=== PATIENT | female | born 1975 | race Caucasian/White ===

== ENCOUNTER → 2017-09-08 09:52 | Outpatient (CLI) | payer MEDICAID, SELFPAY ==
--- NOTE | 2017-09-08 10:06 | EKG12_ITS ---
Test Reason : PREOP Blood Pressure : / mmHG Vent. Rate : 084 BPM Atrial Rate : 084 BPM P-R Int : 126 ms QRS Dur : 074 ms QT Int : 362 ms P-R-T Axes : 054 018 038 degrees QTc Int : 427 ms Normal sinus rhythm Normal ECG Confirmed by NOEMY WHEELER MD ([id number]), manager editorial HALEY MCFARLAND ([id number]) on 09/11/2017 3:48:09 PM Referred By: Mary Enriquez Confirmed By:NOEMY WHEELER MD
[2017-09-08 11:15] LABS: Anion Gap 10 (5-15); BUN 11 mg/dL (7-18); BUN/Creat Ratio 18.9 RATIO (10-20); Chloride 100 mmol/L (98-107); Creatinine, Serum 0.58 mg/dL (0.55-1.02); EST Glomerular Filtration Rate 121 mL/min (>60); Est Glom Filt Rate - Afr Amer 147 mL/min (>60); Glucose 80 mg/dL (70-110); Sodium Level 137 mmol/L (136-145)
== END ==
PROVIDERS: Family Provider Internal Medicine; PCP Internal Medicine; Visit Provider Physician Assistant
DX: Z01.810 Encounter for preprocedural cardiovascular examination (principal); I10 Essential (primary) hypertension
CPT/HCPCS: 36415; 80048; 93005

== ENCOUNTER → 2017-10-18 11:38 | Outpatient (CLI) | payer MEDICAID, SELFPAY ==
[2017-10-30 11:31] LABS: ACHR AB Modulating <12 % (0-20); ACHR Recep AB, Blocking 19 % (0-25); Acetylcholine Receptor Binding < 0.03 nmol/L (0.00-0.24)
== END ==
PROVIDERS: Family Provider Internal Medicine; PCP Internal Medicine; Visit Provider Psychiatry & Neurology Neurology
DX: G70.00 Myasthenia gravis without (acute) exacerbation (principal)
CPT/HCPCS: 36415; 83519; 84238

== ENCOUNTER → 2017-12-19 07:52 | Outpatient (CLI) | payer MEDICAID, SELFPAY ==
--- NOTE | 2017-12-19 10:53 | PFTCOMP_ITS ---
COMPLETE PULMONARY FUNCTION TEST INTERPRETATION Brief HPI: Patient is a 42 year old female, currently under the care of myself, who presents to [facility] for complete pulmonary function tests secondary to diagnosis of chest pain. Respiratory therapist reports good effort and reproducible results. Interpretation: Forced expiration spirometry shows no large airways obstructive ventilatory defect with an FEV1 of 101% predicted. There is no significant bronchodilator response by ATS criteria. Spirograms are of good quality and plateau normally. The respiratory flow volume loop shows a normal pattern. Lung volumes by body plethysmography show a normal total lung capacity at 5.5 L , 109% predicted. All other lung volumes are within normal limits. Diffusion capacity by carbon monoxide is normal at 85% predicted. The airway resistance is normal. Compared to previous pulmonary function tests from 12/07/2016, there has been no significant change. Impression: These pulmonary function tests are within normal limits and showed no significant change compared to previous.
== END ==
PROVIDERS: Family Provider Internal Medicine; PCP Internal Medicine; Visit Provider Internal Medicine Critical Care Medicine
DX: R07.9 Chest pain, unspecified (principal); K52.9 Noninfective gastroenteritis and colitis, unspecified
CPT/HCPCS: 94060; 94726; 94729

== ENCOUNTER → 2018-01-16 09:04 | Outpatient (CLI) | payer MEDICAID, SELFPAY ==
--- NOTE | 2018-01-16 09:11 | RAD_ITS ---
STUDY: X-RAY - LUMBAR SPINE REASON FOR EXAM: Female, 42 years old. Low back pain TECHNIQUE: view(s) of the lumbar spine were obtained. COMPARISON: None FINDINGS: Normal lumbar lordosis. There is no substantial scoliosis. There is a normal alignment of the vertebrae. Normal vertebral bodies and endplates. Normal disc space heights. There is no demonstrated fracture. There is atherosclerotic calcification of the abdominal aorta without a demonstrated aneurysm. Bowel gas pattern suggests ileus as multiple air-fluid levels are noted in nondistended loops of small bowel RAD/L/S Spine Min 4 Views IMPRESSION: Normal x-ray examination of the lumbar spine. Small bowel ileus Electronically Signed: Mike Pillai MD at 10:33 EDT , Service support ,
== END ==
PROVIDERS: Family Provider Internal Medicine; PCP Internal Medicine; Visit Provider Orthopaedic Surgery
DX: M54.5 Low back pain (principal)
CPT/HCPCS: 72110

== ENCOUNTER → 2018-03-01 07:06 | Outpatient (CLI) | payer MEDICAID, SELFPAY ==
--- NOTE | 2018-03-01 07:08 | MRI_ITS ---
STUDY: MRI CERVICAL SPINE WITHOUT CONTRAST REASON FOR EXAM: Female, 42 years old. neck pain,cervical radiculopathy. TECHNIQUE: Standardized fat and water weighted pulse sequences were obtained in the sagittal and axial planes. COMPARISON: None FINDINGS: Normal foramen magnum and brainstem-cervical cord junction. Normal craniovertebral junction. Normal anterior atlantoaxial articulation. Normal odontoid process. Normal cervical lordosis. Normal vertebral bodies and posterior osseous elements. C2-3: Normal endplates. Normal disc height, signal and morphology. Normal central canal and intervertebral neural foramina. C3-4: Normal endplates. Normal disc height, signal and morphology. Normal central canal and intervertebral neural foramina. C4-5: Normal endplates. Normal disc height, signal and morphology. Normal central canal and intervertebral neural foramina. C5-6: Normal endplates. Normal disc height, signal and morphology. Normal central canal and intervertebral neural foramina. C6-7: Normal endplates. Normal disc height, signal and morphology. Normal central canal and intervertebral neural foramina. C7-T1: Normal endplates. Normal disc height, signal and morphology. Normal central canal and intervertebral neural foramina. Normal cervical cord. Normal visualized soft tissue structures. MRI/Spine Cervical (Routine) IMPRESSION: Unremarkable unenhanced MR examination of the cervical spine. Electronically Signed: Louisa Hewitt MD at 15:20 EDT Tel , Service support ,
== END ==
PROVIDERS: Family Provider Internal Medicine; PCP Internal Medicine; Visit Provider Orthopaedic Surgery
DX: M54.12 Radiculopathy, cervical region (principal)
CPT/HCPCS: 72141

== ENCOUNTER 2018-03-08 10:00 | Outpatient (RCR) | payer MEDICAID, SELFPAY ==
--- NOTE | 2018-01-17 09:29 | HP.PTEVAL ---
Patient's Visit Information ANTHONY CARPIO is a 42 year old F referred to Physical Therapy by Leisa Schulz with a diagnosis of BACK PAIN.. Date of Evaluation: 01/17/18 Physical Therapist: Cherelle Segura - Visit Plan Frequency: 2-3x /Week Duration: 4-6 Weeks Plan: AQUATIC THERAPY FOR PAIN RELEIF, POSTURE CORRECTION/STRENGTHENING, INSTRUCTION IN APPROPRIATE BODY MECHANICS AND ACTIVITY MODIFICATIONS. DLS STARTING WITH A NEUTRAL SPINE PROGRESSING ROM TOLERATED. TRINIDAD LE ROM, STRETCHING AND STRENGTHENING. HEP INSTRUCTION. - Subjective Subjective: Work/Leisure: OFF WORK SINCE AUGUST 2017. 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 THE WORK WAS VERY PHYSICAL. REPORTS SHE STOPPED WORKING BECAUSE THE DOCTOR WANTS HER TO BE ON DISABILITY. Disability: APPLYING. Present symptoms: LOW BACK PAIN. LEFT THIGH, LEG AND FOOT PAIN, NUMBNESS AND TINGLING. PATIENT ALSO REPORTS RIGHT LE (THIGH, LEG AND FOOT PAIN, NUMBNESS AND TINGLING) BUT MUCH MORE ON LEFT THAN RIGHT. TAILBONE PAIN. Present since: 2014 OR 2015. Pain Scale: WORST - 10/10, LEAST - 8/10. Currently: 05/16. Commenced as a result of: GI ISSUES. Symptoms at onset: LOW BACK PAIN. Worse: RIDING IN THE CAR, WALKING, LIFTING, STAIRS, SITTING, STANDING, ANYTHING THAT BOUNCES HER AROUND, LYIING BACK, HOMEMAKING. Better: NOTHING. Disturbed sleep: YES. Previous history/Previous treatment: PHYSICAL THERAPY HERE, PHYSICAL THERAPY LAST YEAR AT [facility], CHIROPRACTOR, PAIN MGMT SINCE ABOUT MAY 2016 INCLUDING INJECTIONS - THEY DON'T HELP NO MORE. PAIN MEDICINE. Coughing/sneezing/straining: NEGATIVE. Gait: NO AD'S. Difficulty initiating urinatin: NO. Accidents: NO. Unexplained weight loss: NO. Imaging: LUMBAR X-RAYS YESTERDAY - NORMAL. LUMBAR MRI LAST YEAR - JUNE OF 2017 - IMPRESSION: Early degenerative disc disease at L4-5 and L5-S1 with posterior disc. bulging, and minimal spinal canal narrowing. No evidence of severe spinal. canal or neuroforaminal stenosis at any level.. The findings appears stable compared to May 16, 2016. PMH: NECK PAIN AND HEADACHES. FIBROMYALGIA. PSORIASIS. HYPOTHYROIDISM. 2012 STARTED WITH CONSTANT DIARHEA AND RIGHT SIDE PAIN - DX'D WITH INFECTION PER PATIENT REPORT. SHE REPORTS THIS IS ABOUT WHEN HER BACK PAIN STARTED TOO. Recent major surgery: LEFT UE ULNAR N. AND CTR SURGERY SEP 2017 - THERAPY AT [facility]. - Objective Sitting/Standing Posture: POOR. Lordosis: NORMAL. Lateral shift: NO. Relevant shift: NO. Active Correction of posture: WORSE. Other Observations: INDEP GAIT INTO PT WITHOUT ANY ASSISTIVE DEVICES. WALKS WITH DECREASED CADANCE AND INCREASED TRUNK FLEX. DECREASED TRINIDAD STRIDE LENGTH. Motor deficit: TRINIDAD LE STRENGTH GROSSLY 5/5 WITH MMT'ING EXCEPT HIPS GRADED 4/5. Sensory deficit: TRINIDAD LE LIGHT TOUCH SENSATION APPEARS TO BE INTACT AND SYMMETRICAL. ROM deficit: TIGHT TRINIDAD HS'S. Reflexes: 2/3 TRINIDAD LE'S. Dural Signs: NEGATIVE TRINIDAD LE'S. Lumbar mvmt loss: flex - MOD TO TAYLOR. ext - TAYLOR. R SG - TAYLOR. L SG - TAYLOR. Core strength: POOR. Palpation: TENDERNESS WITH PALPATION THROUGHOUT THE LUMBOSACRAL AREAS AND INTO THE HIPS AND BUTTOCK REGIONS LEFT > RIGHT. NO ACUTE TENDERNESS WITH PALPATION OF THE THORACIC OR LUMBAR VERTEBRAE. INCREASED MUSCLE TONE TRINIDAD PARASPINALS. - Goals Goal 1:: DECREASE C/O BACK AND LE SX'S Goal Time Frame: 4-6 Weeks Goal 2:: IMPROVE PERSONAL CARE, LIFTING, STAIR CLIMBING, WALKING, SITTING, STANDING, SUPINE LYING, SLEEP, SOCIAL LIFE, TRAVEL, WORK AND HOMEMAKING FUNCTION Goal Time Frame: 4-6 Weeks Goal 3:: INSTRUCT IN PROPHYLAXIS Goal Time Frame: 4-6 Weeks - Rehabilitation Potential Rehabilitation Potential: Fair - Anticipated Interventions Patient/Client Instruction: Educate patient on: Condition, Plan of Care, Risk Factors, Benefits of Fitness Program For the Purpose of:: To improve self management Therapeutic Exercise to Include: Strength training, Body mechanics, Postural training, Flexibilty training, In an aquatic setting, Dynamic Lumbar Stabilization For the Purpose of:: To decrease pain, To increase ROM, To improve muscle performance and motor function, To improve ability of physical actions for home/community/work/leisure Thank you for the opportunity to evaluate your patient. For Medicare and Medicare HMO plans, please review the plan of care and approve it. It will need to be FAXED BACK to us at [phone] for Medicare purposes. Please let me know if there are questions or concerns regarding this plan of care. Physician Signature: Date:
--- NOTE | 2018-02-08 10:15 | HP.PTREVAL_ITS ---
Leisa Schulz, It has been my pleasure to treat ANTHONY CARPIO over the last 9 visits for BACK PAIN.. Please see the progress note below for an update on the physical therapy plan of care! Subjective: PATIENT REPORTS THE POOL HAS HELPED SOME. STATES AT LEAST HER LEG ISN'T NUMB. SHE REPORTS THAT DOING THE EX ON [place]AND SEEMED TO AGGREVATE IT IN THE PAST BUT THE WATER SEEMS TO HELP. PATIENT REPORTS DR. YUEN IS GOING TO DO ANOTHER INJECTION IN HER LEFT LOW BACK - STATES SHE JUST HAS TO CALL BACK TO SCHEDULE IT. FOLLOW UP WITH DR. SCHULZ 01/30/18 AND NO SURGERY RECOMMENDED. USING PAIN PATCH AND GABAPENTIN THROUGH PAIN MGMT AND MUSCLE RELAXER. PATIENT REPORTS THE POOL SEEMS TO REALLY HELP HER LEFT LEG. SHE REPORTS THE POOL HAS HELPED HER TO BE ABLE TO WALK A LITTLE BETTER. PATIENT REPORTS HER LEFT HIP AND BACK PAIN ARE A LITTLE BETTER OVER-ALL. HER LEFT HIP AND BACK PAIN NOW RANGES 5 /10 TO 8/10. PATIENT REPORTS SHE IS INTERESTED IN GETTING A POOL MEMBERSHIP SOMEWHERE TO TRANSITION TO EXERCISING ON HER OWN IN A POOL BECAUSE LAND EX MADE IT WORSE. Objective/Function: UPON EXAM: PATIENT IS ABLE TO INDEP'LY TRANSFER FROM SIT TO STAND WITHOUT UE ASSIST. Active Correction of posture: A LITTLE BIT WORSE. Other Observations: INDEP GAIT INTO PT WITHOUT ANY ASSISTIVE DEVICES. WALKS WITH DECREASED CADANCE AND INCREASED TRUNK FLEX. DECREASED TRINIDAD STRIDE LENGTH. PATIENT WALKS CAREFULLY. Motor deficit: TRINIDAD LE STRENGTH GROSSLY 5/5 WITH MMT' ING AND HIPS GRADED 5/5 TODAY TOO ALTHOUGH HIP TESTING BILATERALLY DOES PROVOKE C/O INCREASED PAIN ACROSS HER LOW BACK. Sensory deficit: TRINIDAD LE LIGHT TOUCH SENSATION APPEARS TO BE INTACT AND SYMMETRICAL. ROM deficit: WFL - HS TIGHTNESS HAS IMPROVED. Dural Signs: NEGATIVE TRINIDAD LE'S. Lumbar mvmt loss: flex - MOD - PATIENT REPORTS ITS BETTER. ext - MOD - PATIENT ALSO FEELS THIS IS BETTER. R SG - MOD. L SG - MOD. Core strength: POOR. Palpation: TENDERNESS WITH PALPATION THROUGHOUT THE LUMBOSACRAL AREAS STARTING AT THE TOP OF THE LUMBAR SPINE AND INTO THE LEFT HIP AND BUTTOCK REGIONS. INCREASED MUSCLE TONE TRINIDAD PARASPINALS. LUMBAR OSWESTRY HAS IMPROVED FROM 27 TO 22. Plan Plan: DECREASE AQUATIC PHYSICAL THERAPY TO 1X/WEEK X 4-5 WEEKS FOR EX PROGRESSION TOLERATED AND TO HELP PATIENT SUCCESSFULLY TRANSITION TO INDEP EX AT THE FACILITY OF HER CHOICE. Goals Goal 1:: DECREASE C/O BACK AND LE SX'S Goal Time Frame: 4-6 Weeks Goal 2:: IMPROVE PERSONAL CARE, LIFTING, STAIR CLIMBING, WALKING, SITTING, STANDING, SUPINE LYING, SLEEP, SOCIAL LIFE, TRAVEL, WORK AND HOMEMAKING FUNCTION Goal Time Frame: 4-6 Weeks Goal 3:: INSTRUCT IN PROPHYLAXIS Goal Time Frame: 4-6 Weeks Anticipated Interventions Patient/Client Instruction: Educate patient on: Condition, Plan of Care, Risk Factors, Benefits of Fitness Program For the Purpose of:: To improve self management Therapeutic Exercise to Include: Strength training, Body mechanics, Postural training, Flexibilty training, In an aquatic setting, Dynamic Lumbar Stabilization For the Purpose of:: To decrease pain, To increase ROM, To improve muscle performance and motor function, To improve ability of physical actions for home/ community/work/leisure Please do not hesitate to contact me at [phone] by phone or Fax: if you have questions or concerns regarding this new plan of care! Sincerely, Cherelle Segura
--- NOTE | 2018-03-08 10:30 | HP.PTDCSUM_ITS ---
HP - PT D/C Summary It has been my pleasure to treat ANTHONY CARPIO under orders from Leisa Schulz , for the diagnosis of BACK PAIN. for a total of 14 visit(s). Discharge Date: Please see the following information for a summary of their discharge status. - Subjective Subjective: PATIENT REPORTS THEY ARE CHANGING HER MEDICINE AND SHE HAS BEEN WITHOUT GABAPENTIN FOR A FEW DAYS AND SHE FEELS CRAPY. STARTING LYRICA MONDAY. PATIENT REPORTS SHE IS NOT CONTINUING TO IMPROVE OVER ALL OVER THE LAST MONTH BUT SHE DOES FEEL INDEP WITH THE POOL EX'S NOW WHICH SEEM TO BE HELPING TO KEEP HER FROM GETTING WORSE. SHE IS TRYING TO DECIDE BETWEEN HERE AND THE [facility] FOR POOL MEMBERSHIP. REPORTS LAST INJECTION DIDN'T HELP AND MAYBE AGGREVATED IT. PATIENT REPORTS SHE HAS AN UPCOMING APPOINTMENT WITH DR. SCHULZ THIS MONTH. - Pain Lumbar Spine Pain Intensity (Out of 10): 8 RLE Pain Intensity (Out of 10): 0 LLE Pain Intensity (Out of 10): 8 - Overall Improvement % Improvement: 50 - Objective Objective/Function: UPON EXAM, THERE ARE NO SIGNIFICANT CHANGES SINCE RE-CHECK FEBRUARY 08 BUT PATIENT IS REPORTING MORE PAIN WITH FUNCTIONAL ACTIVITIES AGAIN SINCE STARTING TO CHANGE MEDS. - Goals Goal 1:: DECREASE C/O BACK AND LE SX'S Goal Progress: Not Progressing Goal 2:: IMPROVE PERSONAL CARE, LIFTING, STAIR CLIMBING, WALKING, SITTING, STANDING, SUPINE LYING, SLEEP, SOCIAL LIFE, TRAVEL, WORK AND HOMEMAKING FUNCTION Goal Progress: Not Progressing Goal 3:: INSTRUCT IN PROPHYLAXIS Goal Progress: Not Progressing - Plan Plan: D/C TO INDEP POOL PROGRAM. PATIENT AGREEABLE. - D/C Information If there are questions or concerns regarding this patient's physical therapy, please feel free to call me at [phone]. Thank you for the referral of this patient. Sincerely, Cherelle Segura
== END 2018-03-08 11:17 | disposition home or self-care (01) ==
LOC: PT 10:00
PROVIDERS: Family Provider Internal Medicine; PCP Internal Medicine; Visit Provider Orthopaedic Surgery
DX: M54.9 Dorsalgia, unspecified (principal)
CPT/HCPCS: 97110; 97113; 97162; 97164; 97530

== ENCOUNTER → 2018-04-16 11:05 | Outpatient (CLI) | payer MEDICAID, SELFPAY ==
[2018-04-16 12:17] LABS: Cholesterol 169 mg/dL (200); High Density Lipoprotein 47 mg/dL; T4 Free Direct 0.96 ng/dL (0.76-1.46); Thyroid Stim Hormone (TSH) 0.86 uIU/mL (0.358-3.74); Triglycerides 52 mg/dL; Very Low Density Lipoprotein 10 mg/dL (5-40)
== END ==
PROVIDERS: Family Provider Internal Medicine; PCP Internal Medicine; Visit Provider Internal Medicine
DX: I10 Essential (primary) hypertension (principal); E03.9 Hypothyroidism, unspecified
CPT/HCPCS: 36415; 80061; 84439; 84443

== ENCOUNTER → 2018-05-09 12:47 | Outpatient (CLI) | payer MEDICAID, SELFPAY ==
--- NOTE | 2018-05-09 12:49 | BI_ITS ---
MAMMOGRAPHY - BILATERAL SCREENING REASON FOR EXAM: Female, 42 years old. Routine annual screening examination. PERTINENT HISTORY: FM HX PAT AUNT 41, DEPO SHOTS TECHNIQUE: Digital bilateral breast julia (3D mammographic acquisition) in the CC and MLO projections. 2-D mediolateral oblique (MLO) and craniocaudad (CC) views of both breasts were obtained. CAD: Full Field Digital Mammography with Computer Added Detection was performed. COMPARISON: Nov 26 2012 3:56pm . FINDINGS: Breast Composition: The breasts are extremely dense, which lowers the sensitivity of mammography. There are no dominant masses or suspicious calcifications. No other significant abnormalities are identified. BI/SCREENING MAMM (CAD), BILAT IMPRESSION: Stable bilateral screening mammogram. Yearly follow-up mammogram recommended. (A) ASSESSMENT CATEGORY: BIRADS Category 2: Benign. A letter regarding these results will be sent to the patient by the facility within 30 days. Approximately 10% of breast cancers are not detected by mammography. A normal mammogram should not delay biopsy of a clinically suspicious abnormality. [id number] Electronically Signed: Jaimee Segura MD at 15:54 EDT Tel , Service support ,
== END ==
PROVIDERS: Family Provider Internal Medicine; PCP Internal Medicine; Referring Provider Internal Medicine; Visit Provider Internal Medicine
DX: Z12.31 Encounter for screening mammogram for malignant neoplasm of breast (principal)
CPT/HCPCS: 77063; 77067

== ENCOUNTER 2019-01-07 12:10 | Day surgery (SDC) | payer MEDICAID, SELFPAY ==
[2018-08-28 13:20] VITALS: BMI 28.6
[2019-01-07 13:04] VITALS: BP 122/74; PULSE 72; RESP 18; TEMP 36.7; O2SAT 100; BMI 24.0
[2019-01-07 13:09] LABS: Internal QC Validated? YES +Cl - CLEAR BKGD; Pregnancy, Urine Negative Negative
[2019-01-07] MEDS: Cefazolin 2 GM in 0.9% Normal Saline 100 ML IV (14:10)
--- NOTE | 2019-01-07 14:12 | RAD_ITS ---
STUDY: X-RAY - LUMBAR SPINE REASON FOR EXAM: Female, 43 years old. Placement of stimulator in OR. TECHNIQUE: 9 intraoperative digital documentation view(s) of the lumbar spine were obtained. COMPARISON: January 16, 2018 FINDINGS: 9 intraoperative digital documentation images show an epidural catheter placed with the tip projecting over the T8-T9 level. No complications are noted. RAD/Lumbar Spine 2 or 3 Views IMPRESSION: Placement of stimulator without complications. Electronically Signed: Ryan Camacho MD at 15:36 EDT , Service support ,
[2019-01-07] MEDS: Bupivacaine 0.25% 30 ML Vial (14:15)
[2019-01-07] MEDS: Bacitracin 500 UNITS/GM PACKET (14:51)
[2019-01-07 15:05] VITALS: BP 119/79; BP 122/74; PULSE 75; RESP 16; TEMP 36.2; O2SAT 99
[2019-01-07 15:10] VITALS: BP 100/61; BP 122/74; PULSE 68; RESP 16; O2SAT 98
[2019-01-07 15:15] VITALS: BP 101/66; BP 122/74; PULSE 65; RESP 18; O2SAT 100
[2019-01-07 15:20] VITALS: BP 104/66; BP 122/74; PULSE 67; RESP 18; TEMP 36.2; O2SAT 100
[2019-01-07 15:51] VITALS: BP 122/74
--- NOTE | 2019-01-07 16:09 | HP_ITS ---
Problem List (1) Degeneration of intervertebral disc of lumbosacral region Status: Chronic (2) Radiculopathy of lumbosacral region Status: Chronic (3) Spinal stenosis of lumbosacral region Status: Chronic History of Present Illness Date of Admission: 02/18/19 Chief Complaint: low back pain Chief Complaint: F/U- Medication refill History of Present Illness: This is a 43 Y/O Female who was seen and evaluated at our office today as a follow up. Pain: neck/headaches, lower back (up spinal column) tailbone and both hips and keeley leg (numbness). Quality: back is constant/neck/headaches intermittent Region: neck pain is causing headaches on occasion. Lower back radiates into tailbone and into both hips w/ numbness in keeley legs. Severity: aching, occasional stabbing, numbness Timing: October 2015 Aggravated by: walking, bending, lifting Relieved by: nothing Pain score (out of 10): 910 Other info: Patient is here for a follow up for medication refills. States she continues to have numbness and tingling down her legs worse on the left, states that numbness is painful and interferes with her ADL's. States she is still having the chronic headaches, and reports she did not have the botox done yet because insurance did not approve it so Dr Kwon is trying to get that approved. Needs refills, she denies any bowel or bladder problems, she continues to do ok with her medications without side effects, she stated her flector patch does help. Review of Systems: Patient notes Headaches. denies any recent fever, chills, change in weight without trying, vision or hearing problems. No cp, sob, agarwal, pnd, orthopnea, or peripheral edema.They note no lumps or swollen glands, no new rashes, changing moles, or change in bowel or bladder function. No melena or BRBPR. Mood has been good and overall doing well. Past Medical History: h/o fatigue h/o heavy metal poisoning h/o acid reflux h/o kidney stones h/o Tachycardia h/o Psoriasis h/o GERD h/o left ulnar nerve entrapment h/o hypothyroid h/o vitamin D deficiency h/o Tuberculosis h/o Leroy's esophagus h/o stomach ulcer h/o colitis h/o thrush h/o Arthritis h/o tremors h/o fibromyalgia s/p Appendectomy s/p D&C-miscarriage s/p Left ulnar nerve sx along w/ CTR- 09/2017 Family History: ======== Structured Family History ======== Mother: Diabetes mellitus, Hypertension; thyroid disease Sister: Polycystic ovarian syndrome, Hypothyroidism Father: polio Social History: [Tobacco: Former smoker (0 pk yrs / 0 yrs quit) Pipe Smoker: No Cigar Smoker: No Chewing Tobacco User: No] Living situation: Single Occupation: [employer] Tobacco: Former (quit in Sep 2017 EtOH: Denies Rec. drugs: Denies Allergies: PREDNISONE Medications: 1) amLODIPine 2.5 mg oral tablet, One tablet daily 2) CeleBREX 200 mg oral capsule, 1 CAP PO daily with food. 3) Flector Patch 1.3% topical film, extended release, 1 patch TD daily 4) Knee high ANNI hose 5) Lyrica 100 mg oral capsule, 1 PO TID 6) MRI of lumbar spine 7) Protopic External Ointment, PRN 8) PT eval and treat 9) Synthroid 25 mcg (0.025 mg) oral tablet, One tablet daily 10) Taclonex External Ointment, PRN 11) tiZANidine 4 mg oral tablet, 1 tablet up to tid as needed for spasm 12) Topamax 100 mg oral tablet, 1 tablet po BID 13) Topamax 50 mg oral tablet, 1 and 1/2 tablet PO bid Physical Examination: Wt: 152 lb Ht/Ln: 64 in BMI: 26.1 BP: 122/77 Pulse: 83 RR: 18 Temp: 98.8F Pain: 9 Well nourished and well developed in no acute distress. Alert and oriented to person, place and time. Affect is normal and appropriate. Mucosa pink and moist. Respirations even and unlabored. Neck is supple without significant lymphadenopathy or thyromegaly. Abdomen soft & non-tender. No HSM or masses appreciated. Extremities show no cyanosis, clubbing, or edema. Right side cervical facet challenge is positive much improved. Cervical paraspinal muscle tenderness much improved. Cervical ROM is limited due to pain. Gait is antalgic. Lumbar paraspinal muscle tenderness. Lumbar ROM is limited due to pain. Bilateral lumbar facet loading is positive. Positive ALIN test. SLR is positive. Motor and sensory exam is unchanged. 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 (Transmitted by Luis Antonio Escobar MD) PRESCRIBE: tiZANidine 4 mg oral tablet, 1 tablet up to tid as needed for spasm, # 90, RF: 0. (Transmitted by Luis Antonio Escobar MD) PRESCRIBE: Flector Patch 1.3% topical film, extended release, 1 patch TD daily, # 30, RF: 0. (Transmitted by Luis Antonio Escobar MD) PRESCRIBE: CeleBREX 200 mg oral capsule, 1 CAP PO daily with food., # 30, RF: 0. (Transmitted by Luis Antonio Escobar MD) PRESCRIBE: Lyrica 100 mg oral capsule, 1 PO TID, # 90 , RF: 0. Continue with her current medications. OARRS was reviewed today. UDS was reviewed, pt appears to be compliant. SOAPP score is 4 Pt to continue to see Dr Kwon for her headaches. There are no signs of diversion or addiction with the pt, there is also no signs of abuse or misuse, continues to do well with their medications without any side effects, we will continue monitoring the pt closely. PEG was reviewed today. Life style modifications were also discussed today and the pt appears to understand. Weight loss was recommended today through diet and exercise. Risks and benefits of the above meds were discussed with the pt and they appear to understand. The common side effects of the medications were discussed and all of their questions and concerns were answered and they appear to understand Discussed natural and expected course of this diagnosis and need to alert me if symptoms do not follow expected course, or if any worse. Pt is to continue with her HEP. Pt has tried multiple modalities with no success, we will schedule the pt for a spinal cord stimulator trial once approved. We have discussed the risks, benefits as well as alternatives of the procedure and the patient appears to understand and would like to proceed with the above plan. Follow up in 1 month. The above plan was discussed today with the pt in details and they appear to understand and agrees to continue with the plan. Past Medical History Past Medical History (Chronic Problems): Chronic Problems (Last Reviewed 12/26/17 @ 09:15 by Hanna Agosto) Degeneration of intervertebral disc of lumbosacral region (Chronic) Radiculopathy of lumbosacral region (Chronic) Spinal stenosis of lumbosacral region (Chronic) COPD (chronic obstructive pulmonary disease) (Chronic) Abnormal chest CT (Chronic) Colitis (Chronic) Tobacco abuse (Chronic) Hypertension (Chronic) Fibromyalgia (Chronic) Chronic back pain (Chronic) Tobacco use disorder, mild, in early remission, on maintenance therapy, abuse (Chronic) Migraines (Chronic) GERD (gastroesophageal reflux disease) (Chronic) Hypothyroidism (Chronic) Arthritis (Chronic) Degenerative disc disease (Chronic) Fibromyalgia (Chronic) Immunosuppressed status (Chronic) Psoriatic arthritis (Chronic) Psoriasis (Chronic) Inflammatory bowel diseases (IBD) (Chronic) Medical History: Medical History (Last Reviewed 12/26/17 @ 09:15 by Hanna Agosto) COPD (chronic obstructive pulmonary disease) (Chronic) J44.[address] (Chronic) R93.8 Colitis (Chronic) K52.9 Chest pain (Resolved) R07.9 Tobacco abuse (Chronic) Z72.0 Hypertension (Chronic) I10 Fibromyalgia (Chronic) M79.7 Chronic back pain (Chronic) M54.9, G89.29 Tobacco use disorder, mild, in early remission, on maintenance therapy, abuse (Chronic) Z72.0 Migraines (Chronic) G43.909 Inactive TB (Acute) R76.11 GERD (gastroesophageal reflux disease) (Chronic) K21.9 Hypothyroidism (Chronic) E03.9 Arthritis (Chronic) M19.90 High serum cortisol (Acute) R79.89 Acute colitis (Acute) K52.9 Abdominal pain (Acute) R10.9 Degenerative disc disease (Chronic) [id number] Fibromyalgia (Chronic) Collagenous colitis (Acute) K52.831 Immunosuppressed status (Chronic) D89.9 Psoriatic arthritis (Chronic) L40.50 Psoriasis (Chronic) L40.9 Inflammatory bowel diseases (IBD) (Chronic) K63.89 Allergies prednisone Adverse Reaction (Verified 04/03/18 10:14) Swelling Home Medications: Ambulatory Orders Medication Instructions Recorded Calcipotriene/Betamethasone 60 gm TP PRN PRN 04/30/16 [Taclonex 0.005%-0.064% Suspens] diclofenac epolamine 1.3 % 1 patch TOPICAL QDAY ea 04/16/18 transdermal 12 hour patch tizanidine 4 mg capsule 4 mg PO TID PRN 04/16/18 celecoxib 200 mg capsule 200 mg PO DAILY 07/16/18 pregabalin 100 mg capsule 100 mg PO TID cap 07/16/18 levothyroxine 25 mcg tablet 25 mcg PO DAILY #90 tab 11/08/18 topiramate 100 mg tablet 100 mg PO BID 01/14/19 amlodipine 2.5 mg tablet 2.5 mg PO QDAY #90 tab 01/17/19 Surgical History: Surgical History (Last Reviewed 12/26/17 @ 09:15 by Hanna Agosto) History of carpal tunnel release (Resolved) Z98.890 left, with ulna nerve release. 09/14/17 History of D&C (Resolved) Z98.890 miscarriage History of appendectomy (Resolved) Z98.890, Z90.49 History of colonoscopy (Resolved) Z98.890 2014 Psychiatric History: No pertinent psych hx Smoking Status: Former smoker - *Family History Paternal Family History: Family History (Last Reviewed 12/26/17 @ 09:15 by Hanna Agosto) Grandfather Colon cancer Alcoholism Grandmother COPD (chronic obstructive pulmonary disease) Heart disease Mother Thyroid disorder Sister Thyroid disorder History Items: No pertinent history - No inflammatory bowel disease Maternal Family History: Family History (Last Reviewed 12/26/17 @ 09:15 by Hanna Agosto) Grandfather Colon cancer Alcoholism Grandmother COPD (chronic obstructive pulmonary disease) Heart disease Mother Thyroid disorder Sister Thyroid disorder History Items: No pertinent history - No inflammatory bowel disease Review of Systems Constitutional: Denies: Chills, Fever, Weight Change HEENT: Denies: Head Aches, Sinus Congestion, Sinus Drainage Cardiovascular: Denies: Chest Pain, Palpitations Respiratory: Denies: Cough, Shortness of breath at rest, Sputum production Gastrointestinal: Denies: Abdominal Pain, Nausea, Vomiting Genitourinary: Denies: Dysuria Musculoskeletal: Denies: Joint Pain, Joint Tenderness Skin: Denies: Rash, Wounds Neurological: Denies: Numbness, Tingling, Focal weakness Psychiatric: Denies: Anxiety, Depression, Homicidal Ideations, Suicidal Ideations Hematologic/ Lymphatic: Denies: Easy Bruising, Easy Bleeding - Physical Exam General: Alert Vital Signs Temp Pulse Resp BP Pulse Ox 97.2 F L 67 18 104/66 100 01/07/19 15:20 01/07/19 15:20 01/07/19 15:20 01/07/19 15:20 01/07/19 15:20 Oxygen Delivery Method Room Air Weight: 63.4 kg Body Mass Index (BMI) 24.0 Finger Stick Blood Glucose 88 Assessment/Plan All Active Problems (Last Reviewed 12/26/17 @ 09:15 by Hanna Agosto) History of carpal tunnel release (Resolved) History of D&C (Resolved) History of appendectomy (Resolved) History of colonoscopy (Resolved) Chest pain (Resolved) Inactive TB (Acute) High serum cortisol (Acute) Acute colitis (Acute) Abdominal pain (Acute) Collagenous colitis (Acute) see above
--- NOTE | 2019-01-07 16:09 | PCM.OPRPT ---
Problem List (1) Degeneration of intervertebral disc of lumbosacral region Status: Chronic (2) Radiculopathy of lumbosacral region Status: Chronic (3) Spinal stenosis of lumbosacral region Status: Chronic Report of Operation Date of Procedure: 01/07/19 Pre-Operative Diagnosis: Lumbosacral radiculopathy, lumbosacral degenerative disc disease, lumbosacral spinal stenosis Post-Operative Diagnosis: Lumbosacral radiculopathy, lumbosacral degenerative disc disease, lumbosacral spinal stenosis Surgery/Procedure Performed:: 1-implantation of percutaneous spinal cord stimulator thoracolumbar lead x2, 2-analysis and programming of spinal cord stimulator. 3-interpretation of fluoroscopic images Description of Surgical Findings:: PROCEDURES: 1. Insertion of percutaneous thoracolumbar spinal cord stimulator lead x2 2. Analysis and programming of spinal cord stimulator external generator 3. Fluoroscopic interpretation and guidance PREOPERATIVE DIAGNOSES: Lumbosacral radiculopathy, lumbosacral degenerative disc disease, lumbosacral spinal stenosis POSTOPERATIVE DIAGNOSES: Lumbosacral radiculopathy, lumbosacral degenerative disc disease, lumbosacral spinal stenosis ANESTHESIA: MAC COMPLICATIONS: None BLOOD LOSS: Minimal Implant devices, [employer] lead lot number [id number], [id number] PROCEDURE IN DETAIL: History and physical today was reviewed. Risks and benefits of procedure explained. The patient understood, agreed to procedure, informed consent was obtained. IV inserted per routine protocol. The patient was taken to the operating room, placed in the prone position with a pillow positioned underneath the chest. A 2 g of Ancef IV piggyback was infused per anesthesia. The upper and middle back area was prepped and draped in a sterile fashion using iodine x3, and [place] under direct visualization with fluoroscopy with the C-arm, which brought into position on AP as well as lateral view at the L1-L2 intervertebral bodies and interlaminar space was identified under direct relation fluoroscopy starting on the left paramedian approach skin and subcutaneous tissue and size approximately 15 cc of preservative-free mix of 0.25% Marcaine with 2% lidocaine using a 25-gauge regular needle followed by a 25-gauge 3-1/2 inch spinal needle towards the interlaminar space at L1 to the skin was then nicked with a 11-gauge blade, utilizing a 14-gauge 3-1/2 inch curved tipped to the needle provided by the Medtronic kit the needle passed through the skin the tip of the needle was maneuvering directed towards the interlaminar space at L1-L2 stylette of the needle was then removed and under direct visualization of fluoroscopy on AP as well as lateral view loss of resistance was encountered to air the spinal cord stimulator lead was then inserted through the needle towards the interlaminar space confirmation was then obtained on AP as well as lateral view to confirm correct placement of the needle as well as posterior compartment placement of the spinal cord stimulator lead the lead was then advanced under direct live fluoroscopy with the tip of the lead to T8 level at approximately mid anatomical line, repeat of the above procedure was then initiated to the right paramedian area towards the interlaminar space at L2-3, repeated confirmation was then obtained on AP as well as lateral view to confirm correct placement of the lead in the posterior compartment of the epidural space patient was then awakened and direct stimulation was then obtained by the Med[employer]onic rep once satisfactory coverage of the painful area was then obtained with a spinal cord stimulator leads at the thoracolumbar area the stylette of the leads were then removed intact and the needle was then removed from the skin keeping the spinal cord stimulator leads in place repeated confirmation AP as well as lateral view to avoid any migration of the leads cephalocaudad direction once confirmed the leads was then secured to the skin with the biwinged anchor provided by the [employer] kit, the leads were then secured to the skin with a 4-0 nylon, the area was then was dressed with bacitracin followed by Tegaderm and the spinal cord stimulator lead was then connected to the external spinal cord stimulator device and attached to the left of the patient's lumbar region the area was then dressed in a sterile fashion patient was then turned into supine position patient was able mobilize bilateral lower extremities without any apparent difficulty or any complication the procedure was completed and the patient appeared to tolerate well, patient was then transferred to PACU in a stable condition further analysis and programming of spinal cord stimulator was then achieved at the recovery area. ESTIMATED BLOOD LOSS: Minimal less than 10 mL ASSESSMENT AND PLAN: This is a 43-year-old female with lumbosacral radiculopathy, lumbosacral degenerative disc disease, lumbosacral spinal stenosis status post insertion of a percutaneous thoracolumbar spinal cord stimulator x2-leads, analysis and programming of a spinal cord stimulator, interpretation of fluoroscopic images. The patient will continue her current medication. A prescription was given to the patient for Keflex 500 mg 1 p.o. every 8 hours for 7 days, [place] 5?325 1 p.o. every 6 hours as needed pain dispense 12, instruction was given to the patient verbally as well as in writing. The patient will follow-up in approximately 3 to 4 days for re-evaluation.
== END 2019-01-07 15:55 | disposition home or self-care (01) ==
LOC: SDC 12:11 → AC 12:23
PROVIDERS: Anesthesiology; Family Provider Internal Medicine; PCP Internal Medicine; Referring Provider Anesthesiology Pain Medicine; Visit Provider Anesthesiology Pain Medicine
PROC: (CPT 63650; principal; 2019-01-07 13:30)
DX: M51.17 Intervertebral disc disorders with radiculopathy, lumbosacral region (principal); M51.37 Other intervertebral disc degeneration, lumbosacral region; M48.07 Spinal stenosis, lumbosacral region; M47.22 Other spondylosis with radiculopathy, cervical region; M51.36 Other intervertebral disc degeneration, lumbar region; M79.7 Fibromyalgia; L40.9 Psoriasis, unspecified; E55.9 Vitamin D deficiency, unspecified; K21.9 Gastro-esophageal reflux disease without esophagitis; Z79.899 Other long term (current) drug therapy; Z79.891 Long term (current) use of opiate analgesic; Z87.442 Personal history of urinary calculi; Z87.11 Personal history of peptic ulcer disease; Z87.891 Personal history of nicotine dependence
CPT/HCPCS: 01936; 63650 ×2; 95971; 72100; 76000; 81025; J7120; J2405

== ENCOUNTER → 2019-04-26 09:48 | Outpatient (CLI) | payer MEDICAID, SELFPAY ==
[2019-04-26 09:33] VITALS: BMI 24.0
--- NOTE | 2019-04-26 11:03 | EKG12_ITS ---
Test Reason : PREOP Blood Pressure : / mmHG Vent. Rate : 067 BPM Atrial Rate : 067 BPM P-R Int : 150 ms QRS Dur : 076 ms QT Int : 394 ms P-R-T Axes : 016 064 051 degrees QTc Int : 416 ms Normal sinus rhythm Normal ECG Confirmed by SUMMER MORRISON, NOEMY ([id number]), video effects editor MARCELLUS LAUREANO ([id number]) on 04/29/2019 9:21:42 AM Referred By: Nicholas Becker Confirmed By:NOEMY WHEELER MD
--- NOTE | 2019-04-26 11:10 | RAD_ITS ---
STUDY: X-RAY CHEST REASON FOR EXAM: Female, 43 years old. Pre-op TECHNIQUE: Frontal and lateral views COMPARISON: May 19, 2017 FINDINGS: The lungs are clear and expanded. There is no demonstrated pleural abnormality. Normal size heart. Normal mediastinum and vangie. Normal visualized pulmonary arteries. Normal visualized aortic arch and descending thoracic aorta. Normal visualized thoracic spine. Normal visualized ribs, clavicles, and shoulders. There is no demonstrated abnormality of the visualized soft tissue structures of the upper abdomen. RAD/Chest PA and Lateral IMPRESSION: Normal x-ray examination of the chest. Electronically Signed: Roderick Bass DO at 0:00 EDT Tel [phone], Service support ,
[2019-04-26 13:00] LABS: Absolute Lymphocyte Count 4.29 X10^3/uL (0.83-4.51); Absolute Neutrophil Count 11.7 X10^3/uL (2.0-7.7); Basophil# 0.11 X10^3/uL; Basophil% 0.6 % (0-1); Eosinophil# 0.21 X10^3/uL; Eosinophils% 1.2 % (0-5); Hemoglobin 13.4 g/dL (12.0-15.0); Lymphocyte # 4.29 X10^3/ul (4.0); Mean Corp Hgb Conc 31.9 g/dL (32-36); Mean Corpuscular Hgb 29.6 pg (27.0-32.0); Mean Corpuscular Volume 92.9 fL (81-99); Mean Platelet Vol. 11.8 fl (6.2-12.0); Monocyte# 0.83 X10^3/uL; Monocyte% 4.8 % (0-10); NRBC Flagged by Analyzer 0 % (0-5); Neutrophil # 11.65 X10^3/uL (2.7-7.7); Neutrophil % 68.1 % (47-70); POSITIVE MORPHOLOGY YES; Platelet Count 248 K/mm3 (150-450); RBC Distribution Width CV 14.8 % (11.6-14.6); RBC Distribution Width SD 50.5 fl (35.1-43.9); Red Blood Count 4.52 M/mm3 (4.2-5.4); White Blood Count 17.2 K/mm3 (4.4-11.0)
[2019-04-26 13:07] LABS: Differential Indicated SCAN CRITERIA MET
[2019-04-26 13:35] LABS: Anion Gap 9 (5-15); BUN 13 mg/dL (7-18); Calcium,Total 8.7 mg/dL (8.5-10.1); Chloride 111 mmol/L (98-107); Cholesterol 165 mg/dL (200); Creatinine, Serum 0.76 mg/dL (0.55-1.02); EST Glomerular Filtration Rate 88 mL/min (>60); Est Glom Filt Rate - Afr Amer 106 mL/min (>60); Glucose 85 mg/dL (74-106); High Density Lipoprotein 62 mg/dL; Potassium 4.5 mmol/L (3.5-5.1); Sodium Level 144 mmol/L (136-145); Thyroid Stim Hormone (TSH) 1.11 uIU/mL (0.358-3.74); Triglycerides 34 mg/dL; Very Low Density Lipoprotein 7 mg/dL (5-40)
[2019-04-26 13:39] LABS: Platelet Estimate ADEQUATE (ADEQ)
[2019-04-26 13:40] LABS: Anisocytosis 1+; Reactive Lymphocyte 1+; Red Cell Morphology N CHROM NORMAL (NORM C&C)
== END ==
LOC: EPLAB 11:09 → BIMLAB 11:09
PROVIDERS: Family Provider Internal Medicine; PCP Internal Medicine; Referring Provider Nurse Practitioner Family; Visit Provider Nurse Practitioner Family
DX: I10 Essential (primary) hypertension (principal); E03.9 Hypothyroidism, unspecified; Z72.0 Tobacco use
CPT/HCPCS: 36415; 71046; 80048; 80061; 84443; 85025; 93005

== ENCOUNTER → 2019-05-01 11:11 | Outpatient (CLI) | payer MEDICAID, SELFPAY ==
[2019-04-26 09:33] VITALS: BMI 24.0
[2019-05-01 12:24] LABS: Absolute Lymphocyte Count 5.57 X10^3/uL (0.83-4.51); Absolute Neutrophil Count 8.1 X10^3/uL (2.0-7.7); Basophil# 0.09 X10^3/uL; Basophil% 0.6 % (0-1); Eosinophil# 0.26 X10^3/uL; Eosinophils% 1.8 % (0-5); Hematocrit 39.8 % (37-47); Lymphocyte # 5.57 X10^3/ul (4.0); Lymphocyte % 37.9 % (19-41); Mean Corp Hgb Conc 32.7 g/dL (32-36); Mean Corpuscular Hgb 29.9 pg (27.0-32.0); Mean Corpuscular Volume 91.5 fL (81-99); Mean Platelet Vol. 11.7 fl (6.2-12.0); Monocyte# 0.63 X10^3/uL; Monocyte% 4.3 % (0-10); NRBC Flagged by Analyzer 0 % (0-5); Neutrophil # 8.13 X10^3/uL (2.7-7.7); Neutrophil % 55.2 % (47-70); POSITIVE DIFFERENTIAL YES; POSITIVE MORPHOLOGY YES; Platelet Count 294 K/mm3 (150-450); RBC Distribution Width CV 14.6 % (11.6-14.6); RBC Distribution Width SD 49.1 fl (35.1-43.9); Red Blood Count 4.35 M/mm3 (4.2-5.4); White Blood Count 14.7 K/mm3 (4.4-11.0)
[2019-05-01 12:26] LABS: Differential Indicated SCAN CRITERIA MET
== END ==
PROVIDERS: Family Provider Internal Medicine; PCP Internal Medicine; Visit Provider Nurse Practitioner Family
DX: D72.829 Elevated white blood cell count, unspecified (principal)
CPT/HCPCS: 36415; 85025

== ENCOUNTER 2019-11-19 17:57 | Emergency (ER) | payer MEDICAID, SELFPAY ==
[2019-07-22 08:14] VITALS: BMI 24.0
[2019-11-19 17:59] VITALS: BP 142/76; PULSE 92; RESP 15; TEMP 36.9; O2SAT 97; BMI 26.2
--- NOTE | 2019-11-19 18:21 | ED.DCSUM_ITS ---
- ER Visit Summary Date of Service: 11/19/19 Chief Complaint: Right posterior knee popliteal fossa laceration caused by a boars tusk History of Present Illness: The patient is a 44 F past medical history of hypertension, hypothyroidism and degenerative disc disease with a spine stimulator. States her tetanus is not up-to-date she needs 1. She has picks at her home. And the board was running by her and its tusk caught her right popliteal fossa causing a laceration. This occurred within the last hour. She denies other injuries. Physical Examination: White female no acute distress vital signs stable afebrile. H exam unremarkable. Lungs clear heart regular rhythm no murmur. Chest wall nontender. Abdomen soft nontender. Patient moving all extremities. She has dorsi plantarflexion intact. Normal motor strength. The popliteal fossa behind her right knee has a 7 cm x 4 cm rectangular laceration. Involves the skin and subcu tissue. There is mild oozing but no pulsatile bleeding. She has a normal DP pulse. Normal dorsi and plantar flexion distally. There does not seem to be involvement of any substantial vascular structures or the joint. Neurologically she is awake and alert. Test Results: None Emergency Department Course and Treatment: Laceration to behind the right knee caused by a boar. It is updated. Procedure note: Right popliteal fossa laceration. Local anesthetized with lidocaine. Explored. Washed with Shur-Clens and irrigated with saline. Closed using 4-0 Ethilon suture. Proper hemostasis wound closure was obtained. Placed number nine 4-0 Ethilon simple erupted sutures. Patient tolerated procedure well. Dressing will be applied. Along with bacitracin. She was instructed on wound care. Suture repair I rechecked the left foot. She has a strong DP pulse. Foot is neurovascular intact with normal range of motion, strength and sensation. Treatment Plan: Wound care. Augmentin 875 twice daily for 5 days. Antibiotic ointment. Return if any signs of infection. Suture removal in 10 days. Disposition: Discharge Impression: Right popliteal fossa laceration 7 cm x 4 cm caused by a boar Repair by ER physician Tetanus updated This note was generated with [employer] software. It may contain incorrect words, spelling, and punctuation that were not noted in review of the chart prior to signing ED Disposition - Plan for ED Patient: Referrals: Cherie Cardenas MD [Primary Care Provider] -
[2019-11-19] MEDS: Diphth,Pertuss(Acell),Tet Vac 0.5 ML Vial IM (18:38)
--- NOTE | 2019-11-19 20:02 | ED.DEP ---
ED Disposition - Plan for ED Patient: Disposition: Home or Assisted Living Instructions: ED Laceration Ext Sutr Stap Tape Prescriptions: Amoxicillin/Potassium Clav [Augmentin 875-125 Tablet] 1 ea PO BID #10 tab Prescription Printed Referrals: Cherie Cardenas MD [Primary Care Provider] - 10-14 Days suture removal Additional Instructions: Watch for any signs of infection such as pus, redness, fever increasing pain or if seen return. Suture removal in at least 10 and I prefer 14 days. Clean the wound daily with soap and water or peroxide and water. Apply antibiotic ointment. Keep it covered. May shower but do not bathe or soak in any type of dirty water.
[2019-11-19 20:14] VITALS: BP 129/61; PULSE 69; RESP 18; O2SAT 100
--- NOTE | 2019-11-19 20:15 | ED.RN ---
STATES OK TO START ANTIBIOTIC IN AM. PT AWARE.
== END 2019-11-19 20:15 | disposition home or self-care (01) ==
PROVIDERS: Emergency Provider Emergency Medicine; PCP Internal Medicine
DX: S81.011A Laceration without foreign body, right knee, initial encounter (principal); W45.8XXA Other foreign body or object entering through skin, initial encounter; Y93.9 Activity, unspecified; Y92.9 Unspecified place or not applicable; Y99.9 Unspecified external cause status; Z23 Encounter for immunization; I10 Essential (primary) hypertension; E03.9 Hypothyroidism, unspecified; Z79.899 Other long term (current) drug therapy
CPT/HCPCS: 12002; 90471; 90715; 99283

== ENCOUNTER → 2020-01-01 10:13 | Outpatient (CLI) | payer MEDICAID, SELFPAY ==
[2019-12-12 12:12] VITALS: BMI 26.2
[2020-01-01 13:09] LABS: Absolute Lymphocyte Count 4.99 X10^3/uL (0.83-4.51); Absolute Neutrophil Count 7.4 X10^3/uL (2.0-7.7); Basophil# 0.12 X10^3/uL; Basophil% 0.9 % (0-1); Eosinophil# 0.24 X10^3/uL; Eosinophils% 1.8 % (0-5); Hematocrit 41.7 % (37-47); Hemoglobin 13.5 g/dL (12.0-15.0); Lymphocyte # 4.99 X10^3/ul (4.0); Mean Corp Hgb Conc 32.4 g/dL (32-36); Mean Corpuscular Hgb 29.9 pg (27.0-32.0); Mean Corpuscular Volume 92.5 fL (81-99); Monocyte% 5.2 % (0-10); NRBC Flagged by Analyzer 0 % (0-5); Neutrophil # 7.37 X10^3/uL (2.7-7.7); Neutrophil % 54.7 % (47-70); POSITIVE MORPHOLOGY YES; Platelet Count 273 K/mm3 (150-450); RBC Distribution Width CV 14.9 % (11.6-14.6); RBC Distribution Width SD 50.4 fl (35.1-43.9); Red Blood Count 4.51 M/mm3 (4.2-5.4); White Blood Count 13.5 K/mm3 (4.4-11.0)
[2020-01-01 13:30] LABS: Differential Indicated SCAN CRITERIA MET
[2020-01-01 13:33] LABS: AST(SGOT) 23 U/L (15-37); Alanine Aminotransfer ALT/SGPT 18 U/L (13-56); Albumin, Serum 3.4 g/dL (3.2-5.0); Alkaline Phosphatase 90 U/L (45-117); Anion Gap 4 (5-15); BUN 6 mg/dL (7-18); BUN/Creat Ratio 9.9 RATIO (10-20); Calcium,Total 8.7 mg/dL (8.5-10.1); Chloride 104 mmol/L (98-107); Creatinine, Serum 0.61 mg/dL (0.55-1.02); EST Glomerular Filtration Rate 114 mL/min (>60); Est Glom Filt Rate - Afr Amer 138 mL/min (>60); Globulin 3.5 g/dL (2.2-4.2); Glucose 104 mg/dL (74-106); Potassium 3.9 mmol/L (3.5-5.1); Protein, Total 6.9 g/dL (6.4-8.2); Sodium Level 137 mmol/L (136-145)
[2020-01-01 14:02] LABS: Differential Comment SCANNED; Reactive Lymphocyte 1+
== END ==
PROVIDERS: PCP Internal Medicine
DX: G43.719 Chronic migraine without aura, intractable, without status migrainosus (principal)
CPT/HCPCS: 36415; 80053; 85025

== ENCOUNTER → 2020-07-22 09:08 | Outpatient (CLI) | payer MEDICAID, SELFPAY ==
[2020-01-20 11:20] VITALS: BMI 26.2
[2020-07-22 12:34] LABS: Hematocrit 43.4 % (37-47); Hemoglobin 13.5 g/dL (12.0-15.0); Mean Corp Hgb Conc 31.1 g/dL (32-36); Mean Corpuscular Hgb 29.1 pg (27.0-32.0); Mean Corpuscular Volume 93.5 fL (81-99); Mean Platelet Vol. 12.3 fl (6.2-12.0); Platelet Count 260 K/mm3 (150-450); RBC Distribution Width CV 14.4 % (11.6-14.6); RBC Distribution Width SD 50.4 fl (35.1-43.9); Red Blood Count 4.64 M/mm3 (4.2-5.4); White Blood Count 13.4 K/mm3 (4.4-11.0)
[2020-07-22 13:10] LABS: ALB/GLOB Ratio 1.1 RATIO (0.9-2.4); AST(SGOT) 13 U/L (15-37); Alanine Aminotransfer ALT/SGPT 17 U/L (13-56); Albumin, Serum 3.6 g/dL (3.2-5.0); Alkaline Phosphatase 97 U/L (45-117); Anion Gap 3 (5-15); BUN 8 mg/dL (7-18); Chloride 109 mmol/L (98-107); Cholesterol 180 mg/dL (200); Creatinine, Serum 0.73 mg/dL (0.55-1.02); EST Glomerular Filtration Rate 93 mL/min (>60); Est Glom Filt Rate - Afr Amer 112 mL/min (>60); Globulin 3.4 g/dL (2.2-4.2); Glucose 84 mg/dL (74-106); High Density Lipoprotein 67 mg/dL; Potassium 4.3 mmol/L (3.5-5.1); Sodium Level 139 mmol/L (136-145); Triglycerides 47 mg/dL; Very Low Density Lipoprotein 9 mg/dL (5-40)
== END ==
PROVIDERS: PCP Internal Medicine; Referring Provider Nurse Practitioner Family; Visit Provider Nurse Practitioner Family
DX: I10 Essential (primary) hypertension (principal); E03.9 Hypothyroidism, unspecified
CPT/HCPCS: 36415; 80053; 80061; 84443; 85027